=== PATIENT | male | born 1950 | race Caucasian/White ===

== ENCOUNTER → 2023-12-23 | Outpatient (CLI) | payer OTHER | END | disposition home or self-care (01) | LOC: RAD 08:38 | PROVIDERS: ATTEND Nurse Practitioner Family | DX: K76.0 Fatty (change of) liver, not elsewhere classified (principal); R16.0 Hepatomegaly, not elsewhere classified; K80.20 Calculus of gallbladder without cholecystitis without obstruction; C91.10 Chronic lymphocytic leukemia of B-cell type not having achieved remission; N28.1 Cyst of kidney, acquired; E53.8 Deficiency of other specified B group vitamins; R73.01 Impaired fasting glucose; K76.9 Liver disease, unspecified; E04.1 Nontoxic single thyroid nodule | CPT/HCPCS: 76536; 76705 ==